=== PATIENT | male | born 1990 | race Caucasian/White ===

== ENCOUNTER → 2016-07-09 | Outpatient (CLI) | payer OTHER ==
--- NOTE | 2016-07-09 11:28 | DX ---
Left Shoulder, Three Views 10:19 a.m. Clinical History: 26-year-old male who fell yesterday and dislocated his left shoulder. The patient h ad shoulder surgery 3 years ago. ICD-10 Diagnostic Code: M25.512. Comparison Study: Left shoulder, dated November 16, 2011. Findings: There is a Hill-Sachs deformity associated with the superior lateral humerus at the level o f the greater tuberosity. There is no Bankart lesion appreciated. The glenohumeral and acromioclavicu lar joints are anatomically aligned. The acromiohumeral and coracoclavicular distances are appropriat e. The visualized left rib cage is unremarkable. Impression: Hill-Sachs deformity associated with the greater tuberosity, but there is anatomic alignm ent of the glenohumeral and acromioclavicular joints. If there is further clinical concern regarding the patient's shoulder, MR imaging is suggested.
== END ==
LOC: CIMAGING 10:12
PROVIDERS: ATTEND Family Medicine
DX: S43.005A Unspecified dislocation of left shoulder joint, initial encounter (principal); M21.922 Unspecified acquired deformity of left upper arm
CPT/HCPCS: 73030-PO